=== PATIENT | female | born 1955 | race Caucasian/White ===

== ENCOUNTER 2016-09-25 20:31 | Emergency (ER) | payer OTHER, SELFPAY | END 2016-09-25 22:29 | disposition critical access hospital (66) | LOC: ER 20:31 | DX: K40.31 Unilateral inguinal hernia, with obstruction, without gangrene, recurrent (principal); K21.9 Gastro-esophageal reflux disease without esophagitis; F17.210 Nicotine dependence, cigarettes, uncomplicated; Z79.899 Other long term (current) drug therapy | CPT/HCPCS: 36415; 96361; 96374; 96375; 96376; J1885; J2550; Q9967 ==

== ENCOUNTER 2016-09-25 20:31 | Inpatient (IN) | payer OTHER, SELFPAY ==
[2016-09-28] MEDS ORDERED: IBUPROFEN600 MG PO (11:04)
[2016-09-28] MEDS ORDERED: NICOTINE PATCH1 EACH TD (11:05)
[2016-09-28] MEDS ORDERED: NORCO 10-325 T1 EACH PO (11:05)
[2016-09-28] MEDS ORDERED: PHENERGAN25 M1 PO (11:06)
== END 2016-09-28 11:23 | disposition home or self-care (01) | DRG 352 ==
LOC: ER 20:31 → SDC 22:29 → ICU 09-26 02:08
PROVIDERS: ADMIT Surgery
PROC: 0YQ70ZZ Repair Right Femoral Region, Open Approach (ICD-10-PCS; principal; 2016-09-25)
PROC: 3E0234Z Introduction of Serum, Toxoid and Vaccine into Muscle, Percutaneous Approach (ICD-10-PCS; 2016-09-25)
DX: K41.30 Unilateral femoral hernia, with obstruction, without gangrene, not specified as recurrent (principal); E87.6 Hypokalemia; F17.210 Nicotine dependence, cigarettes, uncomplicated; Z88.5 Allergy status to narcotic agent; Z90.49 Acquired absence of other specified parts of digestive tract; I10 Essential (primary) hypertension; K21.9 Gastro-esophageal reflux disease without esophagitis; M19.90 Unspecified osteoarthritis, unspecified site; E66.3 Overweight; Z68.26 Body mass index [BMI] 26.0-26.9, adult; Z23 Encounter for immunization
CPT/HCPCS: 36415; 74020; 90653; J0696; J1885; J2550; J2704; J2765; Q9967